=== PATIENT | male | born 1980 | race Caucasian/White ===

== ENCOUNTER 2021-12-23 00:47 | Emergency (ER) | payer OTHER ==
--- OUTSIDE RECORDS SUMMARY | 2021-12-23 00:50 | XMS REPORT | Continuity of Care Document ---
:1980 Author Organization [facility] t Address [address] [place] [address] Care Team Providers Name Role Phone HENRIK Attending Clinician Unavailable UNKNOWN Attending Clinician Unavailable Problems This patient has no known problems. Allergies, Adverse Reactions, Alerts Allergy Allergy Status Severity Reaction(s) Onset Inactive Treating Comm ents Source Name Type Date Date Clinician NO KNOWN Drug Active [facility] ALLERGIE Class [facility] Medications This patient has no known medications. Procedures This patient has no known procedures. Encounters Start End Encounter Admission Attending Care Care Encounter Source Date/Time Date/Time Type Type Clinicians Facility Department ID 2021-05-20 Emergency [facility] [id number] [facility] 23:34:14 [facility] 2021-03-11 2021-03-11 Outpatient [facility] [id number] Univers 09:00:00 09:00:00 [id number] [facility] 2021-03-11 2021-03-11 Outpatient R HENRIK, [facility] [id number] [facility] 09:00:00 09:00:00 JOSE MARTIN ruiz [facility] 2021-03-10 2021-03-10 Outpatient [facility] [id number] Univers 14:00:00 14:00:00 [id number] [facility] 2021-03-10 2021-03-10 Outpatient R HENRIK, [facility] [id number] Univers 09:10:00 09:10:00 JOSE MARTIN ruiz [facility] 2021-03-10 2021-03-10 Outpatient R HENRIK [facility] [id number] Univers 09:00:00 09:00:00 JOSE MARTIN corea [facility] 2019-10-08 2019-10-08 Outpatient R UNKNOWN, [facility] [id number] Univers 18:45:00 18:45:00 [facility]ENDING [facility] Results This patient has no known results.
--- NOTE | 2021-12-23 01:29 | ER ---
Nurse's Notes [facility] Name: Wilbert Renteria Age: 41 yrs Sex: Male : 1980 Arrival Date: 12/23/2021 Time: 00:50 Bed Waiting Private MD: Diagnosis: Dental pain Presentation: 12/23 01:12 Chief complaint: Patient states: he has had a toothache to left lower jaw for several bb days the pain is getting unbearable. Coronavirus screen: At this time, the client does not indicate any symptoms associated with coronavirus-19. Ebola Screen: No symptoms or risks identified at this time. Initial Sepsis Screen: Does the patient meet any 2 criteria? No. Patient's initial sepsis screen is negative. Does the patient have a suspected source of infection? No. Patient's initial sepsis screen is negative. Risk Assessment: Do you want to hurt yourself or someone else? Patient reports no desire to harm self or others. Onset of symptoms was December 23, 2021. 01:12 Method Of Arrival: Ambulatory bb 01:12 Acuity: KIT 5 bb Triage Assessment: 01:14 General: Appears in no apparent distress. Behavior is calm, cooperative. Pain: bb Complains of pain in left lower jaw Pain currently is 8 out of 10 on a pain scale. EENT: Reports pain in left lower jaw toothache. Neuro: Level of Consciousness is awake, alert, obeys commands, Oriented to person, place, time, situation. Cardiovascular: Capillary refill < 3 seconds Patient's skin is warm and dry. Respiratory: Airway is patent Respiratory effort is even, unlabored, Respiratory pattern is regular. GI: No signs and/or symptoms were reported involving the gastrointestinal system. Derm: Skin is pink, warm \T\ dry. Musculoskeletal: Circulation, motion, and sensation intact. Historical: - Allergies: 01:14 No Known Allergies; bb - Home Meds: 01:14 Cymbalta Oral [Active]; Glyburide Oral [Active]; Metformin Oral [Active]; Strattera bb Oral [Active]; Lamictal Oral [Active]; - PMHx: 01:14 aspergers; Diabetes - NIDDM; Hyperlipidemia; bb - Immunization history:: Moderna x 3. - Social history:: Smoking status: Patient denies any tobacco usage or history of. Assessment: 01:34 Reassessment: pt discharged from triage by Dr Fabian. bb Vital Signs: 01:12 BP 160 / 96; Pulse 84; Resp 16 S; Temp 98.4(O); Pulse Ox 94% on R/A; Weight 120.2 kg bb (R); Height 5 ft. 10 in. (177.80 cm) (R); Pain 8/10; 01:12 Body Mass Index 38.02 (120.20 kg, 177.80 cm) bb ED Course: 00:50 Patient arrived in ED. ja2 01:14 Triage completed. bb 01:14 Arm band placed on pt seen in triage by Dr Fabian. bb 01:27 Chai Fabian DO is Attending Physician. ms3 01:27 Michel Liu DDS is Referral Physician. ms3 01:35 No provider procedures requiring assistance completed. Patient did not have IV access bb during this emergency room visit. Administered Medications: No medications were administered Outcome: :28 Discharge ordered by MD. ms3 01:34 Discharged to home ambulatory. bb 01:34 Condition: stable 01:34 Discharge instructions given to patient, Instructed on discharge instructions, follow up and referral plans. medication usage, Demonstrated understanding of instructions, follow-up care, medications, Prescriptions given X 2. 01:35 Patient left the ED. bb Signatures: Karen Yun RN RN bb Chai Fabian DO DO ms3 Kala Perrin ja2
--- NOTE | 2021-12-23 01:29 | EDPHYS ---
Physician Documentation [facility] Name: Wilbert Renteria Age: 41 yrs Sex: Male : 1980 Arrival Date: 12/23/2021 Time: 00:50 Bed Waiting Private MD: ED Physician Chai Fabian HPI: 12/23 01:28 This 41 yrs old Male presents to ER via Ambulatory with complaints of Toothache. ms3 01:28 The patient presents with pain. The problem is located in the Left lower molar. Onset: ms3 The symptoms/episode began/occurred 1 week(s) ago. Duration: The symptoms are continuous. Modifying factors: The symptoms are alleviated by nothing, the symptoms are aggravated by nothing. Severity of symptoms: At their worst the symptoms were severe, in the emergency department the symptoms are unchanged, a " 8" out of "10". Historical: - Allergies: 01:14 No Known Allergies; bb - Home Meds: 01:14 Cymbalta Oral [Active]; Glyburide Oral [Active]; Metformin Oral [Active]; Strattera bb Oral [Active]; Lamictal Oral [Active]; - PMHx: 01:14 aspergers; Diabetes - NIDDM; Hyperlipidemia; bb - Immunization history:: Moderna x 3. - Social history:: Smoking status: Patient denies any tobacco usage or history of. ROS: 01:28 Constitutional: Negative for fever, and chills. Eyes: Negative for injury, pain, ms3 redness, and discharge, Neck: Negative for injury, pain, and swelling, Cardiovascular: Negative for chest pain, and palpitations. Respiratory: Negative for shortness of breath, cough, wheezing, and pleuritic chest pain, Abdomen/GI: Negative for abdominal pain, nausea, vomiting, diarrhea, and constipation. 01:28 MS/Extremity: Negative for injury and deformity, Skin: Negative for injury, rash, and discoloration. 01:28 ENT: Positive for dental pain. 01:28 All other systems are negative. Exam: 01:28 Constitutional: This is a well developed, well nourished patient who is awake, alert, ms3 and in no acute distress. Head/Face: Normocephalic, atraumatic. 01:28 Chest/axilla: Normal chest wall appearance and motion. Nontender with no deformity. Cardiovascular: Regular rate and rhythm with a normal S1 and S2. No gallops, murmurs, or rubs. Normal PMI, no JVD. No pulse deficits. Respiratory: Lungs have equal breath sounds bilaterally, clear to auscultation and percussion. No rales, rhonchi or wheezes noted. No increased work of breathing, no retractions or nasal flaring. Abdomen/GI: Soft, non-tender, with normal bowel sounds. No distension or tympany. No guarding or rebound. No evidence of tenderness throughout. Skin: Warm, dry with normal turgor. Normal color with no rashes, no lesions, and no evidence of cellulitis. Psych: Awake, alert, with orientation to person, place and time. Behavior, mood, and affect are within normal limits. 01:28 ENT: Mouth: Tongue: is normal, Dental exam: pain, that is moderate, specifically in the lower left second molar (#18). Vital Signs: 01:12 BP 160 / 96; Pulse 84; Resp 16 S; Temp 98.4(O); Pulse Ox 94% on R/A; Weight 120.2 kg bb (R); Height 5 ft. 10 in. (177.80 cm) (R); Pain 8/10; 01:12 Body Mass Index 38.02 (120.20 kg, 177.80 cm) bb MDM: 01:28 Patient medically screened. ms3 01:28 Differential diagnosis: dental caries, dental abscess. Data reviewed: vital signs, ms3 nurses notes. Counseling: I had a detailed discussion with the patient and/or guardian regarding: the historical points, exam findings, and any diagnostic results supporting the discharge/admit diagnosis. Administered Medications: No medications were administered Disposition Summary: 12/23/21 01:28 Discharge Ordered Location: Home ms3 Condition: Stable ms3 Diagnosis - Dental pain ms3 Followup: ms3 - With: Michel Liu DDS - When: 2 - 3 days - Reason: Recheck today's complaints Discharge Instructions: - Discharge Summary Sheet ms3 - Dental Pain, [id number] ms3 Forms: - Medication Reconciliation Form ms3 - Thank You Letter ms3 - Antibiotic Education ms3 - Prescription Opioid Use ms3 Prescriptions: - PENICILLIN VK 500 mg - take 1 tablet by ORAL route 4 times per day for 10 days; 40 tablet; Refills: 0, ms3 Product Selection Permitted - Ibuprofen 600 mg Oral Tablet - take 1 tablet by ORAL route every 6 hours As needed take with food; 30 tablet; ms3 Refills: 0, Product Selection Permitted Signatures: Karen Yun, RN RN Chai Cai DO DO ms3
[2021-12-23 01:59] VITALS: BP 160/96; TEMP 98.4; O2SAT 94
== END 2021-12-23 01:35 | disposition home or self-care (01) ==
LOC: ER 00:47
DX: K08.89 Other specified disorders of teeth and supporting structures (principal); E11.9 Type 2 diabetes mellitus without complications; F84.5 Asperger's syndrome
CPT/HCPCS: 99282

== ENCOUNTER 2022-06-27 17:18 | Emergency (ER) | payer OTHER ==
--- OUTSIDE RECORDS SUMMARY | 2022-06-27 17:21 | XMS REPORT | Continuity of Care Document ---
:1980 Author Organization [facility] t Address [address] [place] [address] Care Team Providers Name Role Phone JOSE MARTIN CHESTER Attending Clinician Unavailable UNKNOWN, ATTENDING Attending Clinician Unavailable Problems This patient has no known problems. Allergies, Adverse Reactions, Alerts Allergy Allergy Status Severity Reaction(s) Onset Inactive Treating Comm ents Source Name Type Date Date Clinician NO KNOWN Drug Active [facility] ALLERGIE Class [facility] Medications This patient has no known medications. Procedures This patient has no known procedures. Encounters Start End Encounter Admission Attending Care Care Encounter Source Date/Time Date/Time Type Type Clinicians Facility Department ID 2021-05-20 Emergency [facility] [id number] Univers 23:34:14 [facility] 2021-03-11 2021-03-11 Outpatient R HENRIK [facility] [id number] Univers 09:00:00 09:00:00 JOSE MARTIN ruiz [facility] 2021-03-10 2021-03-10 Outpatient R HENRIK [facility] [id number] Univers 09:10:00 09:10:00 JOSE MARTIN knowles [facility] 2021-03-10 2021-03-10 Outpatient R HENRIK [facility] [id number] Univers 09:00:00 09:00:00 JOSE MARTIN corea o benson [facility] 2019-10-08 2019-10-08 Outpatient R FARRUKH [facility] [id number] Univers 18:45:00 18:45:00 ATTENDING [facility] Results This patient has no known results.
--- NOTE | 2022-06-27 18:54 | ER ---
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 Coronavirus screen: At this time, the client does not indicate any symptoms associated with coronavirus-19. Ebola Screen: Patient negative for fever greater than or equal to 101.5 degrees Fahrenheit, and additional compatible Ebola Virus Disease symptoms Patient denies exposure to infectious person. Patient denies travel to an Ebola-affected area in the 21 days before illness onset. No symptoms or risks identified at this time. Initial Sepsis Screen: Does the patient meet any 2 criteria? No. Patient's initial sepsis screen is negative. Does the patient have a suspected source of infection? No. Patient's initial sepsis screen is negative. Risk Assessment: Do you want to hurt yourself or someone else? Patient reports no desire to harm self or others. Onset of symptoms was June 24, 2022. 17:55 Method Of Arrival: Ambulatory iw 17:55 Acuity: KIT 4 iw Historical: - Allergies: 17:59 No Known Allergies; iw - PMHx: 17:51 aspergers; Diabetes - NIDDM; Hyperlipidemia; ld1 Vital Signs: 18:02 BP 134 / 87; Pulse 105; Resp 16; Temp 98.5; Pulse Ox 100% on R/A; iw ED Course: 17:22 Patient arrived in ED. mr 17:24 Manjula Tijerina PA-C is PHCP. sb4 17:24 Darrius Urabn MD is Attending Physician. sb4 17:51 Sheyla Hardin, ANDRE is Primary Nurse. ld1 17:57 Triage completed. iw 17:59 Arm band placed on. iw 18:53 Quique Yanes MD is Referral Physician. sb4 Administered Medications: No medications were administered Outcome: 18:54 Discharge ordered by . sb4 19:12 Patient left the ED. ld1 Signatures: Alvina Osei Irene, RN RN iw Sheyla Hardin RN RN foreign1 Manjula Tijerina, JODI ZAPATA sb4
--- NOTE | 2022-06-27 18:54 | EDPHYS ---
Physician Documentation [facility] Name: Wilbert Renteria Age: 42 yrs Sex: Male : 1980 Arrival Date: 06/27/2022 Time: 17:22 Bed 10 Private MD: ED Physician Darrius Urban HPI: 06/27 18:10 This 42 yrs old Male presents to ER via Ambulatory with complaints of Abscess. sb4 18:10 The patient presents with an abscess of the face, The patient presents with cellulitis sb4 of the face. Description: The affected area is approximately 1 cm(s), erythematous, fluctuant, raised, swollen, warm. Onset: The symptoms/episode began/occurred 5 day(s) ago. Possible cause(s): Pimple. Associated signs and symptoms: The patient has no apparent associated signs or symptoms. Modifying factors: the symptoms are alleviated by OTC meds, Tylenol, hydrogen peroxide, neosporin, the symptoms are aggravated by nothing. Severity of symptoms: in the emergency department the symptoms are unchanged, despite home interventions. The patient has not experienced similar symptoms in the past. 1 cm abscess with surrounding cellulitis noted to left nondenominational at the hairline. Historical: - Allergies: 17:59 No Known Allergies; iw - PMHx: 17:51 aspergers; Diabetes - NIDDM; Hyperlipidemia; ld1 ROS: 18:10 Constitutional: Negative for fever, chills, and weight loss, Eyes: Negative for injury, sb4 pain, redness, and discharge, Neck: Negative for injury, pain, and swelling, Cardiovascular: Negative for chest pain, palpitations, and edema, Respiratory: Negative for shortness of breath, cough, wheezing, and pleuritic chest pain, Abdomen/GI: Negative for abdominal pain, nausea, vomiting, diarrhea, and constipation. 18:10 Skin: Positive for abscess, cellulitis. Exam: 18:10 Constitutional: This is a well developed, well nourished patient who is awake, alert, sb4 and in no acute distress. Head/Face: Normocephalic, atraumatic. Eyes: Pupils equal round and reactive to light, extra-ocular motions intact. Periorbital areas with no swelling, redness, or edema. ENT: Mucous membranes moist. Cardiovascular: Regular rate and rhythm with a normal S1 and S2. Respiratory: Lungs have equal breath sounds bilaterally, clear to auscultation and percussion. No rales, rhonchi or wheezes noted. No increased work of breathing, no retractions or nasal flaring. Abdomen/GI: Soft, non-tender, no distension. 18:10 Skin: abscess, that is small, with fluctuance, that is mild, with surrounding cellulitis, that is mild, cellulitis. Vital Signs: 18:02 BP 134 / 87; Pulse 105; Resp 16; Temp 98.5; Pulse Ox 100% on R/A; iw Procedures: 18:50 I \T\ D: Incision and drainage was performed for an abscess of the left nondenominational Prepped sb4 with Betadine, Anesthetized with 1 ml's 1% Lidocaine. Incised with #10 blade. Drained small amount serosanguinous fluid. Loculations removed. Cultures obtained. Dressing: sterile 4x4 gauze, the patient tolerated the procedure well. MDM: 18:00 Patient medically screened. sb4 18:50 Data reviewed: vital signs, and as a result, I will discharge patient. sb4 06/27 18:13 Order name: Incision \T\ Drainage Setup; Complete Time: 18:25 sb4 Administered Medications: No medications were administered Disposition: 06/28 07:04 Co-signature as Attending Physician, Darrius Urban MD. rn Disposition Summary: 06/27/22 18:54 Discharge Ordered Location: Home sb4 Problem: new sb4 Symptoms: have improved sb4 Condition: Stable sb4 Diagnosis - Cutaneous abscess of face sb4 - Cellulitis of face sb4 Followup: sb4 - With: Quique Yanes MD - When: 1 week - Reason: Wound Recheck, Recheck today's complaints, Continuance of care, Re-evaluation by your physician Discharge Instructions: - Discharge Summary Sheet sb4 - Skin Abscess, [id number] sb4 - Cellulitis, Adult, [id number] sb4 - Incision and Drainage, Care After sb4 Forms: - Work release form ld1 - Medication Reconciliation Form sb4 - Thank You Letter sb4 - Antibiotic Education sb4 - Prescription Opioid Use sb4 Prescriptions: - Clindamycin HCl 300 mg Oral Capsule - take 1 capsule by ORAL route every 6 hours for 10 days; 40 capsule; Refills: 0, sb4 Product Selection Permitted Signatures: Luz Reardon RN Darrius Hickman MD MD rn Dibbern, Lauren, RN RN ldManjula Manriquez, JODI PAAraceli sb4 Corrections: (The following items were deleted from the chart) 06/27 18:28 18:10 1 cm abscess with surrounding cellulitis noted to the right nondenominational at the sb4 hairline. sb4
[2022-06-27 23:25] VITALS: BP 134/87; TEMP 98.5; O2SAT 100
== END 2022-06-27 19:12 | disposition home or self-care (01) ==
LOC: ER 17:18
PROC: 0H91XZZ Drainage of Face Skin, External Approach (ICD-10-PCS; principal; 2022-06-27)
DX: L03.211 Cellulitis of face (principal); L02.01 Cutaneous abscess of face
CPT/HCPCS: 99281